=== PATIENT | female | born 1980 | race Caucasian/White ===

== ENCOUNTER → 2019-10-03 | Outpatient (CLI) | payer OTHER | END | disposition home or self-care (01) | LOC: STAR 10:42 | PROVIDERS: ATTEND Obstetrics & Gynecology | DX: Z01.818 Encounter for other preprocedural examination (principal); Z11.59 Encounter for screening for other viral diseases | CPT/HCPCS: 36415; 87635 ==

== ENCOUNTER 2019-10-05 10:27 | Outpatient (CLI) | payer OTHER ==
[~2019-10-05] VITALS: Ht 167.6 cm; Wt 109.0 kg
[2019-10-05 10:37] VITALS: BP 127/69
[2019-10-10] MEDS ORDERED: OXYC-302 PO (08:29)
[2019-10-10] MEDS ORDERED: DOCU-131 PO (08:29)
[2019-10-10] MEDS ORDERED: IBUP-1222 PO (08:29)
== END 2019-10-05 12:15 | disposition home or self-care (01) ==
LOC: LDOP 10:27
PROVIDERS: ATTEND Obstetrics & Gynecology
DX: O36.8130 Decreased fetal movements, third trimester, not applicable or unspecified (principal); O09.523 Supervision of elderly multigravida, third trimester; Z3A.38 38 weeks gestation of pregnancy
CPT/HCPCS: 59025; 76819